=== PATIENT | male | born 1995 | race Hispanic/Latino ===

== ENCOUNTER 2017-06-26 03:37 | Emergency (ER) | payer SELFPAY ==
[2017-06-26] MEDS ORDERED: NA CHLORIDE 0.9% 1,000 ML ONE (03:50)
[2017-06-26] MEDS ORDERED: ONDANSETRON 4 MG/2 ML VIAL ONE (03:53)
[2017-06-26] MEDS ORDERED: FAMOTIDINE 20 MG/2 ML VIAL IV ONE (03:53)
[2017-06-26 05:30] LABS: Protime INR 1.02
[2017-06-26 05:49] LABS: BUN Blood Urea Nitrogen 10 mg/dL (6-20); Bicarbonate 25 mEq/L (21-31); Glucose Level 115 mg/dL (65-120); Potassium 3.5 mEq/L (3.6-5.0); Sodium Level 140 mEq/L (135-145)
[2017-06-26 05:50] LABS: Alcohol Serum/Plasma 156 mg/dl
[2017-06-26 06:12] LABS: Absolute Lymphocytes (CBC) 1.2 K/uL (0.7-4.9); Absolute Monocytes 0.3 K/uL (0.1-1.3); Basophils % 0.3 % (0-1.3); Hematocrit 41.9 % (39.6-49.0); MCH 30.2 pg (27.0-35.0); MCV 87.6 fL (80-100); MPV 8.2 fL (7.6-11.3); Monocytes % 2.3 % (3.3-12.3); RBC Red Blood Cell Count 4.78 M/uL (4.33-5.43)
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
[2017-06-26 10:27] LABS: Blood Morphology Comment NOT SEEN (NOT SEEN); Platelet Estimate ADEQ
--- NOTE | 2017-06-26 14:48 | RAD REPORT ---
EXAM DESCRIPTION: RAD - Chest Pa And Lat (2 Views) - 06/26/2017 9:57 am CLINICAL HISTORY: Chest pain chest pain Drywall Hanger malfunction precluded earlier dictation. COMPARISON: None. TECHNIQUE: PA and lateral views of the chest were obtained. FINDINGS: The lungs are clear. Heart size is normal and central vasculature is within normal limit s. No pleural effusion or pneumothorax seen. No acute bony finding noted. No aortic abnormality. IMPRESSION: No acute cardiopulmonary process.
--- NOTE | 2017-06-27 07:18 | EKG ---
Test Date: 2017-06-26 Test Time: 03:45:05 Helicopter Mechanic: MARIYA MEASUREMENT RESULTS: Intervals: Rate: 98 VT: 134 QRSD: 92 QT: 328 QTc: 418 [place]: P: 76 VT: 134 QRS: 91 T: 65 INTERPRETIVE STATEMENTS: Normal sinus rhythm Rightward axis ST elevation, probably due to early repolarization Borderline ECG No previous ECG available for comparison Electronically Signed On 06-27-17 07:17:48 CDT by Anjel Ferrell
== END 2017-06-26 06:56 | disposition home or self-care (01) ==
LOC: ER 03:37
DX: K29.70 Gastritis, unspecified, without bleeding (principal); K92.0 Hematemesis; Z72.0 Tobacco use
CPT/HCPCS: 36415; 71046; 80048; 80320; 84484; 85025; 85610; 85730; 93005; 96374; 96375; 99284; J2405; J7030